=== PATIENT | male | born 2000 | race Caucasian/White ===

== ENCOUNTER 2024-07-28 08:57 | Emergency (ER) | payer MEDICAID, SELFPAY ==
--- NOTE | ~2024-07-28 | XR_ITS ---
EXAMINATION: XR ELBOW 3 VIEWS LEFT HISTORY: pain/possible dislocation COMPARISON: There are no prior studies available for comparison. FINDINGS: Three views of the left elbow are submitted. Osseous mineralization is normal. There is no fracture or dislocation. The joint spaces are preserved. The soft tissues are unremarkable. XR/XR elbow LT min 3V IMPRESSION: Unremarkable examination of the left elbow. Electronically signed by: Fabrizio Sweet MD 07/28/2024 09:33 AM EDT
[2024-07-28 09:00] VITALS: BP 125/80; PULSE 84; RESP 20; TEMP 36.2; O2SAT 97; BMI 33.4
--- NOTE | 2024-07-28 09:57 | ED_ITS ---
HPI - Extremity Problem General Chief complaint: Extremity Injury, Upper Stated complaint: L elbow injury Time Seen by Provider: 07/28/24 09:37 Source: patient Mode of arrival: ambulatory Limitations: no limitations History of Present Illness ED Provider: Konrad Pedersen PA-C HPI Narrative: 24 yo right hand dominant male presents to the ER for evaluation of left elbow pain after he heard a pop while he was working out yesterday. He states he was bench pressing when he was extending his arms he felt and heard a pop in his left elbow. When he released and bent his elbow again, he felt it pop back in. He has history of a similar presentation in the past. He has not been evaluated for this. He reports pain with full flexion today. No numbness, tingling or weakness but he feels like his hand is swollen; he had a hard time getting his ring off today. MD Complaint: joint pain Onset (ago): day(s) (1) Pain Consistency: intermittent Location: left Severity scale (1-10): 1 Quality: aching Radiation: none Relieving factors: nothing Exacerbating factors: nothing Associated symptoms: denies other symptoms Related Data Allergies Allergy/AdvReac Type Severity Reaction Status Date / Time No Known Allergies Allergy Verified 07/28/24 09:03 Review of Systems Review of Systems: Yes all other systems are reviewed and are negative [facility] Social History Social History Advance Directives: No Advance Directives Information Provided: No Do you have a plan to hurt others: No Plan Physical Exam Vital Signs: Vital Signs: Last Vital Signs Temp 97.1 F 07/28/24 09:00 Pulse 84 07/28/24 09:00 Resp 20 07/28/24 09:00 BP 125/80 07/28/24 09:00 Pulse Ox 97 07/28/24 09:00 O2 Del Method Room Air 07/28/24 09:00 BMI result Body Mass Index 33.4 Appearance: Alert. Oriented X3. No acute distress. HEENT: normal inspection CVS: Normal heart rate and rhythm. Pulses normal. Respiratory: No respiratory distress. Skin: Skin warm and dry. Normal skin color. Normal skin turgor. No rashes. Extremities: normal inspection of the left elbow and left upper extremity. nontender medial and lateral epicondyles. no palpable effusion in the elbow. pain with full passive flexion. mild weakness on extension and flexion of the forearm. no proximal UE weakness. Neuro: Oriented X 3. No motor deficit. No sensory deficit. Medical Decision Making Medical Decision Making MDM Narrative: 24-year-old right-hand dominant male presents to the ER for evaluation of left elbow pain after he thinks he dislocated it while bench pressing yesterday. He has full range of motion on exam today with no point tenderness. X-ray is negative. He has some discomfort with full flexion of the elbow. There is question of ligamentous injury/ strain /laxity. will place in sling and have him follow-up with Orthopedics. We discussed rest, ice, NSAIDs for pain and discomfort and need for orthopedic follow-up. He reports this is a recurrent problem. Stable for discharge home. Differential Diagnosis Differential Diagnoses: The differential diagnosis associated with the presentation includes bursitis, ligamentous injury, sprain, tendon rupture, fracture Independent Interpretation I performed an independent interpretation of an: Plain X-Ray Interpretation: no acute fracture of effusion seen Radiology Impression Discussion of test interpretation with radiology: I have reviewed the radiologist's reading. Independent Historian Clinical information obtained from an independent historian. History obtained from or confirmed by: Parent Prescription Management I considered prescription management with: Pain Medication Critical Care Time Critical Care Time Critical Care Time: No Discharge Plan Discharge Clinical Impression: Elbow pain Qualifiers: Laterality: left Qualified Code(s): M25.522 - Pain in left elbow Patient Disposition: Home, Self-Care Instructions: Elbow Dislocation (ED), Elbow Sprain (ED) Additional Instructions: Your x-ray today was normal. Rest your arm/elbow and keep it in the sling for the next 2 days. Then you can slowly start range of motion. Limit lifting >5-10 lbs. Use ice several times per day for the next 48 hours. Take Motrin and/or Tylenol as needed for pain. Follow up Orthopedics for further evaluation and treatment, call for an appointment. If you develop new or worsening symptoms call 911 or come back to the ER for further evaluation. Referrals: [facility] [place] [facility] [Provider Group] Print Language: Hungarian
[2024-07-28 10:37] VITALS: BP 125/80; PULSE 84; RESP 20; TEMP 36.2; O2SAT 97
== END 2024-07-28 10:37 | disposition home or self-care (01) ==
PROVIDERS: Emergency Provider Emergency Medicine
DX: M25.522 Pain in left elbow (principal)
CPT/HCPCS: 73080; 99283; 99284

== ENCOUNTER → 2024-07-28 09:05 | Outpatient (BNV) | payer OTHER, SELFPAY | PROVIDERS: Emergency Provider Emergency Medicine; Visit Provider Radiology Diagnostic Radiology | DX: M25.522 Pain in left elbow (principal) | CPT/HCPCS: 73080 ==

== ENCOUNTER 2025-01-12 10:19 | Emergency (ER) | payer OTHER, SELFPAY ==
--- NOTE | ~2025-01-12 | XR_ITS ---
EXAMINATION: XR HAND, RIGHT CLINICAL INFORMATION: pain after punching window COMPARISON: None available. TECHNIQUE: PA, lateral, and oblique views of the right hand. FINDINGS: There is a fracture through the neck of the fifth metacarpal carpal with mild volar angulation. No other abnormalities are evident. XR/XR hand RT min 3V IMPRESSION: Acute boxer's fracture. Electronically signed by: Giovanni Prajapati MD 01/12/2025 10:41 AM EDT
[2025-01-12 10:23] VITALS: BP 127/64; PULSE 73; RESP 18; TEMP 36.9; O2SAT 98; BMI 35.4
--- NOTE | 2025-01-12 10:23 | ED.GENADULT ---
HPI - General Adult General Chief complaint: Extremity Injury, Upper Stated complaint: r hand inj Time Seen by Provider: 01/12/25 11:56 Source: patient, RN notes reviewed and old records reviewed Mode of arrival: ambulatory Limitations: no limitations History of Present Illness ED Provider: [facility] narrative: Patient is a 24-year-old right hand dominant male presenting with complaint of right hand pain after punching a window last night. States window did not break. Arrives in splint. Reports fracturing the same hand a few months ago. States that the splint he is wearing on arrival was 1 that he had from his prior fracture. Denies any numbness or tingling to hand. MD complaint: Hand pain Onset (ago): day(s) Related Data Allergies Allergy/AdvReac Type Severity Reaction Status Date / Time No Known Allergies Allergy Verified 01/12/25 10:26 Review of Systems Review of Systems: As per HPI Yes all other systems are reviewed and are negative Constitutional: Constitutional: Reports as per HPI [facility] Social History Social History Advance Directives: No Advance Directives Information Provided: No Physical Exam ED Vital Signs: Vital Signs - 24 hr 01/12/25 10:23 Temperature 98.4 F Pulse Rate 73 Respiratory Rate 18 Blood Pressure 127/64 Pulse Oximetry 98 Oxygen Delivery Method Room Air BMI result Body Mass Index 35.4 Vital signs have been reviewed and appear to be correct. Blood pressure normal. Heart rate normal. Respiratory rate normal. Temperature normal. Oxygen saturation normal. Const General: cooperative, healthy appearing and no acute distress Orientation/consciousness: oriented to person, oriented to place, oriented to time and patient oriented x3 Limitations: no limitations [facility] Head: Yes normocephalic and Yes atraumatic Ears: external ears normal General nose exam: Normal external nose present Face and sinus: Yes face symmetric Mouth: oropharynx normal and moist mucous membranes Throat: Yes uvula midline Eyes Pupils: Equal, round and reactive pupils present Neck Neck: Yes normal visual inspection and Yes supple Resp Effort & Inspection: normal respiratory effort and able to speak in complete sentences Auscultation: clear to auscultation bilaterally Cardio Rate: regular rate Rhythm: regular rhythm Heart sounds: S1 normal heart sound present and S2 normal heart sound present GI Palpation (GI): Soft to palpation and nontender Auscultation: normoactive bowel sounds General: Yes no CVA tenderness Back/Spine/Pelvis Back: no CVA tenderness Skin General skin exam: elasticity normal and turgor normal Neuro General: oriented to person, oriented to place, oriented to time, patient oriented x3, moves all extremities, no focal motor deficits and CN's II-XI intact bilaterally Cranial nerves: Yes Equal, round and reactive pupils present Cognition (Neuro): normal cognition Extrem General: Yes full ROM, Yes no pedal edema and Yes no calf tenderness Right upper extremity: Extremity exam: right hand Details: normal capillary refill, neurosensory exam normal, tenderness Location: of the dorsal hand Location: over the 5th metacarpal, vascular exam Details: radial pulse present, ulnar pulse present and normal capillary refill, normal ROM of fingers and swelling Location: of the dorsal hand Location: over the 5th metacarpal; no abrasions, no lacerations and no ecchymosis Psych Mental Status: mental status grossly normal Affect: normal affect Thought process: Normal thought process present Course Course Course Narrative: This is a rapid medical exam performed by Bunny Galvin NP: Additional HPI, ROS, PE not included below will be deferred to primary provider. Patient is a 24-year-old right hand dominant male presenting with complaint of right hand pain after punching a window last night. States window did not break. Arrives in splint. Plan: X-ray Medical Decision Making Medical Decision Making [facility] Narrative: Patient is a 24-year-old right hand dominant male presenting with complaint of right hand pain after punching a window last night. On exam patient is awake, A+Ox3, VS WNL, afebrile, normal neurological exam without focal deficits, physical exam findings as above. Given reported symptoms and physical exam findings, initial differential includes but is not limited to right hand contusion, strain, sprain, fracture. X-ray right hand notable for 5th metacarpal fracture with volar angulation. My interpretation is in agreement with the radiologist's interpretation. Case discussed with gigi Jonas who recommends Orthoglass splint as opposed to ulnar gutter splint that patient arrived with. Patient splinted as per procedure note, tolerated well, no complications. Advised ice, elevation, Tylenol and ibuprofen. Follow up with Orthopedics. Return precautions discussed. Patient verbalized understanding of and agreement with plan. Differential Diagnosis Differential Diagnoses: The differential diagnosis associated with the presentation includes As per [facility] Admission/Observation Consideration of admission/observation: Escalation of care including admission/observation considered Patient would have been admitted to the hospital had their clinical presentation warranted hospital admission. Independent Interpretation I performed an independent interpretation of an: Plain X-Ray Interpretation: Right hand x-ray notable for a 5th metacarpal fracture Radiology Impression Discussion of test interpretation with radiology: I have reviewed the radiologist's reading. Radiologist Impression: EXAMINATION: XR HAND, RIGHT CLINICAL INFORMATION: pain after punching window COMPARISON: None available. TECHNIQUE: PA, lateral, and oblique views of the right hand. FINDINGS: There is a fracture through the neck of the fifth metacarpal carpal with mild volar angulation. No other abnormalities are evident. XR/XR hand RT min 3V IMPRESSION: Acute boxer's fracture. External Record Review External record reviewed: Inpatient record, Office record and Outpatient record Discharge Plan Discharge Clinical Impression: Fracture of fifth metacarpal bone of right hand Qualifiers: Encounter type: initial encounter Fracture type: closed Metacarpal location: neck Patient Disposition: Home, Self-Care Instructions: Hand Fracture (DC), Splint Care (ED), P.R.I.C.E. Treatment (ED) Additional Instructions: You have been evaluated in the emergency department today for right hand pain. Your evaluation showed a fracture of your 5th metacarpal bone. We have placed your hand in a splint today, avoid getting the splint wet. Please rest, ice, and elevate your hand to help it heal. Use use Tylenol or ibuprofen per package directions every 6 hours as needed for pain. If necessary, you can alternate these medications and take one medication every 3 hours. For instance, at noon take ibuprofen, then at 3:00 p.m. take Tylenol, then at 6:00 p.m. take ibuprofen. Please follow-up with the orthopedic surgeon within 1 week. Return to the emergency department if you experience worsening pain, numbness, tingling, change of color in your fingers, or any other concerning symptoms. [place]errals: [facility] [place] [facility] [place] Group] Clinical Impression: Fracture of fifth metacarpal bone of right hand Stand Alone Forms: Work/School Release Print Language: Tajik
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
[2025-01-12 12:45] VITALS: BP 127/64; PULSE 73; RESP 18; TEMP 36.9; O2SAT 98
== END 2025-01-12 12:46 | disposition home or self-care (01) ==
PROVIDERS: Emergency Provider Emergency Medicine
DX: S62.396A Other fracture of fifth metacarpal bone, right hand, initial encounter for closed fracture (principal); M79.641 Pain in right hand; W22.8XXA Striking against or struck by other objects, initial encounter; Y93.89 Activity, other specified; Y92.89 Other specified places as the place of occurrence of the external cause; Y99.8 Other external cause status
CPT/HCPCS: 29125; 73130; 99282; 99283; 99284

== ENCOUNTER → 2025-01-12 10:24 | Outpatient (BNV) | payer OTHER, SELFPAY | PROVIDERS: Visit Provider Radiology Diagnostic Radiology | DX: S62.336A Displaced fracture of neck of fifth metacarpal bone, right hand, initial encounter for closed fracture (principal) | CPT/HCPCS: 73130 ==

== ENCOUNTER 2025-01-19 08:20 | Outpatient (REF) | payer OTHER, SELFPAY ==
--- NOTE | ~2025-01-19 | XR_ITS ---
CLINICAL HISTORY: M79.641 - Pain in right hand --- Additional Notes or Special Instructions: Attn fifth MC 3 view right hand Comparison: CR/SR - XR HAND 3 OR MORE VIEWS RIGHT - 01/12/25 10:40 EDT Findings: Mildly displaced and angulated fracture of the 5th metacarpal neck. No significant loss of joint space or osteophytes. No erosions. No radiopaque foreign body. IMPRESSION: 5th metacarpal fracture. This document has been electronically signed by: Lorrie Gordon MD on 01/19/2025 17:01:57
--- OUTSIDE RECORDS SUMMARY | 2025-01-19 08:42 | XMS_ITS | Clinical Summary ---
Author Organization [address] Address [address] [place] [phone] Phone Care Team Providers Care Glass Cutter Helper Name Role Phone Physician, No Pcp Primary [...] [facility] at [address] [place] [address] by Jeremy Bello as of 07/16/16 As of 05/27/18 - seeing Anette Desai at [address] [phone] Sleep disturbance 05/27/2009 Attention deficit disorder of childhood 05/15/19 10 Overview (04/26/2024): Being followed by behavioral health as of 07/2016 Immunizations Name Administration Dates Next Due DTaP (Infanrix) 6wks to less than 7yo ,06/16/2002,2001,08/03,2001 [id number] (Pentacel) 2mo to less than 5yo 06/16/2002,2001,2001,05/31 [...] Site/Laterality Comments OTHER SURGICAL HISTORY 2001 PROCEDURE: NM PYLOROMYOTOMY CUTTING PYLORIC MUSC; COMMENT: DR. 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 Antelmo Ro - dx made [...] patient's age to complete this topic Insurance [facility] PLAN Care Teams Glass Cutter Helper Relationship Specialty Start Date End Date Physician, No Pcp PCP - General 09/27/24
== END 2025-01-19 08:21 | disposition home or self-care (01) ==
LOC: HO.HOSX 08:20
DX: S62.336A Displaced fracture of neck of fifth metacarpal bone, right hand, initial encounter for closed fracture (principal); W22.8XXA Striking against or struck by other objects, initial encounter
CPT/HCPCS: 26600; 73130; 99202

== ENCOUNTER 2025-01-19 12:51 | Outpatient (AMB) | payer OTHER, SELFPAY ==
[2025-01-19 13:07] VITALS: BMI 35.3
--- NOTE | 2025-01-19 13:07 | MHC.OFFVIS ---
Vital Signs 01/19/25 13:07 Height 5 ft 8 in Weight 232 lb BMI 35.3 Intake Visit Reasons: FC Fx of 5th metacarpal bone of R hand Intake Note: Johnie is a 24 year old right hand dominant male, new patient, who presents today for an ED follow up status post Right 5th Metacarpal Fracture, DOI: 01/11/25. Patient presented to [facility] [place] ED reporting he had punched a window the night before. Patient was already in a velcro wrist brace. Per ED note, patient reported he had fractured his hand a month ago. Patient complains today of pain on the ulnar aspect of the right hand. Denies numbness or tingling. He is taking Tylenol and Ibuprofen PRN with relief of pain. Denies previous surgeries to the right hand. Patient shares he was given a new velcro wrist brace at the ED however it was bothering him so he went back to the orinal brace he was using, bending it so that it looked like the new brace he was given. Allergies No Known Allergies Allergy (Verified 01/19/25 13:17) HPI HPI FC Fx of 5th metacarpal bone of R hand: Details: Johnie is a 24 year old right hand dominant male, new patient, who presents today for an ED follow up status post Right 5th Metacarpal Fracture, DOI: 01/11/25. Patient presented to [facility] [place] ED reporting he had punched a window the night before. Patient was already in a velcro wrist brace. Per ED note, patient reported he had fractured his hand a month ago. Patient complains today of pain on the ulnar aspect of the right hand. Denies numbness or tingling. He is taking Tylenol and Ibuprofen PRN with relief of pain. Denies previous surgeries to the right hand. Patient shares he was given a new velcro wrist brace at the ED however it was bothering him so he went back to the orinal brace he was using, bending it so that it looked like the new brace he was given. Review of Systems Const All systems reviewed & are unremarkable except as noted in HPI and below Physical Exam Vital Signs: BMI result Body Mass Index 35.3 Extrem Other: Patient is alert, oriented, and in no acute distress. Neuro: Normal sensation of the tips of all digits of the right hand at this time Vascular: Cap refill brisk Pain: Tenderness to palpation noted over the 5th metacarpal of the right hand Pain with range of motion of the right hand ROM: Patient is able to make a closed fist with the right hand Skin: No lacerations or abrasions. General: Edema noted over the 5th metacarpal head and neck No ecchymosis, erythema, or evidence of infection. Psych: Appears grossly normal Affect normal Attitude cooperative Office Procedures AMB Fracture Care Fracture Billing Code: Fracture Billing Code Casting/Splints 27981-Sjyvmpi Splint Application Procedure code (CPT) selection complete Results Reviewed Results Reviewed: X-rays obtained in the office today and independently reviewed by me, Pritesh Holguin PA-C, demonstrate minimally displaced fracture of the right 5th metacarpal neck. Assessment & Plan Assessment & Plan (1) Closed displaced fracture of neck of right fifth metacarpal bone: Code(s): S62.336A - Displaced fracture of neck of fifth metacarpal bone, right hand, initial encounter for closed fracture Category: Medical Plan 1. Right 5th metacarpal neck fracture Date of injury 01/12/2025 Patient is educated about this condition Patient is educated about the typical recovery course At this time, patient is informed that I feel we can treat this fracture conservatively, as fracture is very minimally displaced Patient is placed into a 2 finger ulnar gutter splint Patient is educated on proper splint care and precautions Follow-up next week for reassessment, anticipate cast placement at that time, we will need repeat x-rays, sooner with any acute concerns Orders: Orders XR hand RT min 3V Today M79.641 - Pain in right hand Coding Level of Care Code New Pt Level 3 (52341) Diagnoses Closed displaced fracture of neck of right fifth metacarpal bone S62.336A CPT Codes Fracture Care - Fracture Billing Code: Fracture Billing Code ([id number]) Splint - CPT: 52210-Llvuuhl Splint Application ([id number])
== END 2025-01-19 13:51 | disposition home or self-care (01) ==
LOC: HO.HOS 12:52
DX: S62.336A Displaced fracture of neck of fifth metacarpal bone, right hand, initial encounter for closed fracture (principal)
CPT/HCPCS: 26600; 99203

== ENCOUNTER → 2025-01-19 12:56 | Outpatient (BNV) | payer OTHER, SELFPAY | PROVIDERS: Visit Provider Radiology Diagnostic Radiology | DX: S62.336A Displaced fracture of neck of fifth metacarpal bone, right hand, initial encounter for closed fracture (principal) | CPT/HCPCS: 73130 ==

== ENCOUNTER 2025-01-26 09:30 | Outpatient (REF) | payer OTHER, SELFPAY ==
--- NOTE | ~2025-01-26 | XR_ITS ---
EXAMINATION: XR HAND, RIGHT CLINICAL INFORMATION: M79.641 - Pain in right hand COMPARISON: 01/19/2025 TECHNIQUE: PA, lateral, and oblique views of the right hand. FINDINGS: Again seen is a boxer's fracture involving the fifth metacarpal neck with minimal volar deformity. There is faint increasing periosteal new bone formation consistent with healing. There is also increasing lucencies along the dorsal end of the fracture which is a normal change during early healing. XR/XR hand RT min 3V IMPRESSION: Healing Boxer's fracture of the right hand Electronically signed by: Giovanni Prajapati MD 01/26/2025 02:36 PM EDT
--- OUTSIDE RECORDS SUMMARY | 2025-01-26 10:01 | XMS_ITS | Clinical Summary ---
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 JAS [...] infectious organisms Congenital hypertrophic pylo obdulio stenosis (CMS/[facility] V28) 2001 DX:Congenital hypertrophic p yloric stenosis Aggressive behavior 01/17/2014 DX:Aggressiv e behavior; COMMENT: Evaluation done 02/12/14 at [facility] by Dr. Antelmo Ro - [...] Depression Screening 05/10/2024 COVID-19 Vaccine (2 - 2024- season) 2025 02/07/2022 Influenza Vaccine (#1) 2025 9, 03/02/2018, 03/19/2017, Additional history exists RSV Immunization Adult Patients (1 - 1-dose 75+ series) 2076 Hepatitis B Vaccines Completed 01/01/2002, 2001, 2001 [...] patient's age to complete this topic Insurance [facility] PLAN Care Teams Building Associate Relationship Specialty Start Date End Date Physician, No Pcp PCP - General 09/27/24
== END 2025-01-26 09:31 | disposition home or self-care (01) ==
LOC: HO.HOSX 09:30
DX: S62.336D Displaced fracture of neck of fifth metacarpal bone, right hand, subsequent encounter for fracture with routine healing (principal); W22.8XXD Striking against or struck by other objects, subsequent encounter
CPT/HCPCS: 29085; 73130; 99212

== ENCOUNTER 2025-01-26 13:01 | Outpatient (AMB) | payer OTHER, SELFPAY ==
--- NOTE | 2025-01-26 13:19 | MHC.OFFVIS ---
Vital Signs 01/26/25 13:22 Height 5 ft 8 in Weight 213 lb BMI 32.4 Handedness Right Intake Visit Reasons: OV-5th metacarpal bone of R hand-w/xrays? Intake Note: Johnie is a 24 year old right hand dominant man who presents today for a follow up visit for his closed displaced fracture of neck of right fifth metacarpal bone, DOI: 01/11/25 s/p punching a window. At his last visit he was placed in a into a 2 finger ulnar gutter splint. His splint was removed today in office for updated x-rays. Patient expresses pain that comes and goes localized on the right hand 5th MCP and radiates up the finger. Denies numbness and tingling. With the splint removed he does express some stiffness. Patient is requesting a school note today. Allergies No Known Allergies Allergy (Verified 01/26/25 13:22) Do you need a note to return to daycare/school/sports/work: Yes Return to daycare/school/sports/work/other note: school HPI HPI OV-5th metacarpal bone of R hand-w/xrays?: Details: Johnie is a 24 year old right hand dominant man who presents today for a follow up visit for his closed displaced fracture of neck of right fifth metacarpal bone, DOI: 01/11/25 s/p punching a window. At his last visit he was placed in a into a 2 finger ulnar gutter splint. His splint was removed today in office for updated x-rays. Patient expresses pain that comes and goes localized on the right hand 5th MCP and radiates up the finger. Denies numbness and tingling. With the splint removed he does express some stiffness. Patient is requesting a school note today. Review of Systems Const All systems reviewed & are unremarkable except as noted in HPI and below Physical Exam Vital Signs: BMI result Body Mass Index 32.4 Extrem Other: Patient is alert, oriented, and in no acute distress. Neuro: Normal sensation of the tips of all digits of the right hand at this time Vascular: Cap refill brisk Pain: Tenderness to palpation noted over the 5th metacarpal of the right hand Pain with range of motion of the right hand ROM: Patient is able to make a closed fist with the right hand Skin: No lacerations or abrasions. General: Edema noted over the 5th metacarpal head and neck No ecchymosis, erythema, or evidence of infection. Psych: Appears grossly normal Affect normal Attitude cooperative Office Procedures Casting/Splints 29029-Pqaa/Wrist Cast Application Procedure code (CPT) selection complete Results Reviewed Results Reviewed: X-rays obtained in the office today and independently reviewed by me, Pritesh Holguin PA-C, demonstrate minimally displaced fracture of the right 5th metacarpal nec with early evidence of bony healing. Assessment & Plan Assessment & Plan (1) Closed displaced fracture of neck of right fifth metacarpal bone: Code(s): S62.336A - Displaced fracture of neck of fifth metacarpal bone, right hand, initial encounter for closed fracture Category: Medical Plan 1. Right 5th metacarpal neck fracture Date of injury 01/12/2025 Patient is educated about this condition Patient is educated about the typical recovery course At this time, patient is informed that I feel we can treat this fracture conservatively, as fracture is very minimally displaced Patient is placed into a 2 finger ulnar gutter cast Patient is educated on proper cast care and precautions Follow-up next week for reassessment, anticipate cast removal at that time, we will need repeat x-rays, sooner with any acute concerns Orders: Orders XR hand RT min 3V 01/26/25 M79.641 - Pain in right hand Coding Level of Care Code Global (48027) Diagnoses Closed displaced fracture of neck of right fifth metacarpal bone S62.336A CPT Codes Casting - CPT: 79973-Dutf/Wrist Cast Application ([id number])
[2025-01-26 13:22] VITALS: BMI 32.4
== END 2025-01-26 14:09 | disposition home or self-care (01) ==
LOC: HO.HOS 13:01
DX: S62.336A Displaced fracture of neck of fifth metacarpal bone, right hand, initial encounter for closed fracture (principal)
CPT/HCPCS: 29085; 99024

== ENCOUNTER → 2025-01-26 13:02 | Outpatient (BNV) | payer OTHER, SELFPAY | PROVIDERS: Visit Provider Radiology Diagnostic Radiology | DX: S62.306D Unspecified fracture of fifth metacarpal bone, right hand, subsequent encounter for fracture with routine healing (principal) | CPT/HCPCS: 73130 ==

== ENCOUNTER 2025-02-09 08:28 | Outpatient (AMB) | payer OTHER, SELFPAY ==
--- OUTSIDE RECORDS SUMMARY | 2025-02-09 08:50 | XMS_ITS | Clinical Summary ---
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 Antelmo Ro - dx made [...] patient's age to complete this topic Insurance [facility] [id number] Care Teams Executive Coordinator Relationship Specialty Start Date End Date Physician, No Pcp PCP - General 09/27/24
[2025-02-09 09:02] VITALS: BMI 32.4
--- NOTE | 2025-02-09 09:02 | A.OFFVIS_ITS ---
Vital Signs 02/09/25 09:02 Height 5 ft 8 in Weight 213 lb BMI 32.4 Intake Visit Reasons: OV:Right 5th Metacarpal Bone Fx, DOI: 01/11/25 Intake Note: Johnie is a 24 year old right hand dominant male who presents today for follow up status post Right 5th Metacarpal Bone Fracture, DOI: 01/11/25. Patient was placed into a 2 finger ulnar gutter cast at his last visit. Cast removed in office and xrays updated in office. States he was having pain on his 4th MCP on his dorsal aspect of hand. Reports it feels a little better tnow that his cast has been removed. Allergies No Known Allergies Allergy (Verified 02/09/25 09:11) HPI HPI OV:Right 5th Metacarpal Bone Fx, DOI: 01/11/25: Details: Johnie is a 24 year old right hand dominant male who presents today for follow up status post Right 5th Metacarpal Bone Fracture, DOI: 01/11/25. Patient was placed into a 2 finger ulnar gutter cast at his last visit. Cast removed in office and xrays updated in office. States he was having pain on his 4th MCP on his dorsal aspect of hand. Reports it feels a little better tnow that his cast has been removed. [facility] Social History (Updated 02/09/25 @ 09:05 by AYSE Granger) Patient Tobacco Use Status: Former Tobacco user Current occupational status: student Current occupation: rt hand/ Review of Systems Const All systems reviewed & are unremarkable except as noted in HPI and below Physical Exam Vital Signs: BMI result Body Mass Index 32.4 Extrem Other: Patient is alert, oriented, and in no acute distress. Neuro: Normal sensation of the tips of all digits of the right hand at this time Vascular: Cap refill brisk Pain: No Tenderness to palpation noted over the 5th metacarpal of the right hand Pain with range of motion of the right hand ROM: Patient is able to make a closed fist with the right hand Skin: No lacerations or abrasions. General: No further Edema noted over the 5th metacarpal head and neck No ecchymosis, erythema, or evidence of infection. Psych: Appears grossly normal Affect normal Attitude cooperative Assessment & Plan Assessment & Plan (1) Closed displaced fracture of neck of right fifth metacarpal bone: Code(s): S62.336A - Displaced fracture of neck of fifth metacarpal bone, right hand, initial encounter for closed fracture Category: Medical Plan 1. Right 5th metacarpal neck fracture Date of injury 01/12/2025 Patient is educated about this condition Patient is educated about the typical recovery course At this time, patient is informed that I feel we can treat this fracture conserv atively, as fracture is very minimally displaced Patient is placed into a velcro wrist splint to wear with daytime activities, and aubrey tape to tape the 4th and 5th digits together whenever awake and not bathing Should work on ROM of the digits of the R hand 2 lb weight limit until f/u Follow-up in 4 weeks, we will need repeat x-rays, sooner with any acute concerns Orders: Orders XR hand RT min 3V Today M79.641 - Pain in right hand Coding Level of Care Code Global (48144) Diagnoses Closed displaced fracture of neck of right fifth metacarpal bone S62.336A
== END 2025-02-09 09:29 | disposition home or self-care (01) ==
LOC: HO.HOS 08:29
DX: S62.336A Displaced fracture of neck of fifth metacarpal bone, right hand, initial encounter for closed fracture (principal)
CPT/HCPCS: 99024

== ENCOUNTER 2025-02-09 08:28 | Outpatient (REF) | payer OTHER, SELFPAY ==
--- NOTE | ~2025-02-09 | XR_ITS ---
EXAMINATION: XR HAND 3 OR MORE VIEWS RIGHT HISTORY: M79.641 - Pain in right hand COMPARISON: Comparison is made with the prior examination dated 01/26/2025. FINDINGS: Three views of the right hand are submitted. Osseous mineralization is normal. Again seen is a fracture of the 5th metacarpal neck. There is greater bridging callus formation noted on the current study, consistent with further healing. The joint spaces are preserved. The soft tissues are unremarkable. XR/XR hand RT min 3V IMPRESSION: Continued healing of the previously seen fracture of the 5th metacarpal neck. Electronically signed by: Fabrizio Sweet MD 02/09/2025 08:57 AM EDT
== END 2025-02-09 08:29 | disposition home or self-care (01) ==
LOC: HO.HOSX 08:28
DX: S62.336D Displaced fracture of neck of fifth metacarpal bone, right hand, subsequent encounter for fracture with routine healing (principal); X58.XXXD Exposure to other specified factors, subsequent encounter
CPT/HCPCS: 73130; 99212

== ENCOUNTER → 2025-02-09 08:44 | Outpatient (BNV) | payer OTHER, SELFPAY | PROVIDERS: Visit Provider Radiology Diagnostic Radiology | DX: M79.641 Pain in right hand (principal) | CPT/HCPCS: 73130 ==

== ENCOUNTER 2025-03-12 08:02 | Outpatient (REF) | payer OTHER, SELFPAY ==
--- NOTE | ~2025-03-12 | XR_ITS ---
EXAMINATION: XR HAND 3 OR MORE VIEWS RIGHT HISTORY: M79.641 - Pain in right hand COMPARISON: Comparison is made with the prior examination dated 02/09/2025. FINDINGS: Three views of the right hand are submitted. Osseous mineralization is normal. There is been further healing of the previously seen fracture of the 5th metacarpal neck with greater callus formation. The fracture line remains visible but is less well seen than on the prior study. The joint spaces are preserved. The soft tissues are unremarkable. XR/XR hand RT min 3V IMPRESSION: Continued healing of previously seen fracture of the 5th metacarpal neck. Electronically signed by: Fabrizio Sweet MD 03/12/2025 09:40 AM EST
== END 2025-03-12 08:03 | disposition home or self-care (01) ==
LOC: HO.HOSX 08:02
DX: S62.336D Displaced fracture of neck of fifth metacarpal bone, right hand, subsequent encounter for fracture with routine healing (principal); X58.XXXD Exposure to other specified factors, subsequent encounter
CPT/HCPCS: 73130; 99212

== ENCOUNTER 2025-03-12 09:23 | Outpatient (AMB) | payer OTHER, SELFPAY ==
--- NOTE | 2025-03-12 09:33 | A.OFFVIS_ITS ---
Vital Signs 03/12/25 09:34 Height 5 ft 8 in Weight 213 lb BMI 32.4 Intake Visit Reasons: OV-RT 5th Metacarpal Bone Fx, DOI: 01/11/25-w/xray Intake Note: Johnie is a 24 year old right hand dominant male who presents today for status post Right 5th Metacarpal Bone Fracture, DOI: 01/11/25. At his last visit, 02/09/25, he was transitioned to a Velcro wrist brace to wear with daytime activities and aubrey tape to tape the 4th and 5th digits together whenever awake. Patient was advised to work on ROM and to keep a 2lb weight limit until follow up. Today patient states he has no pain and is doing really well with his ROM. States no concerns for today visit. Allergies No Known Allergies Allergy (Verified 03/12/25 09:37) HPI HPI OV-RT 5th Metacarpal Bone Fx, DOI: 01/11/25-w/xray: Details: Johnie is a 24 year old right hand dominant male who presents today for status post Right 5th Metacarpal Bone Fracture, DOI: 01/11/25. At his last visit, 02/09/25, he was transitioned to a Velcro wrist brace to wear with daytime activities and aubrey tape to tape the 4th and 5th digits together whenever awake. Patient was advised to work on ROM and to keep a 2lb weight limit until follow up. Today patient states he has no pain and is doing really well with his ROM. States no concerns for today visit. No ongoing issues of pain. Denies numbness or tingling in the right upper extremity. No other acute complaints or concerns at this time. [facility] Social History Patient Tobacco Use Status: Former Tobacco user Current occupational status: student Current occupation: rt hand/ Review of Systems Const All systems reviewed & are unremarkable except as noted in HPI and below Physical Exam Vital Signs: BMI result Body Mass Index 32.4 Extrem Other: Patient is alert, oriented, and in no acute distress. Neuro: Normal sensation of the tips of all digits of the right hand at this time Vascular: Cap refill brisk Pain: No Tenderness to palpation noted over the 5th metacarpal of the right hand Pain with range of motion of the right hand ROM: Patient is able to make a closed fist with the right hand without any difficulty Skin: No lacerations or abrasions. General: No further Edema noted over the 5th metacarpal head and neck No ecchymosis, erythema, or evidence of infection. Psych: Appears grossly normal Affect normal Attitude cooperative Results Reviewed Results Reviewed: X-rays obtained in the office today and independently reviewed by me, Pritesh Holguin PA-C, demonstrate minimally displaced fracture of the right 5th metacarpal nec with interval bony healing. Assessment & Plan Assessment & Plan (1) Closed displaced fracture of neck of right fifth metacarpal bone: Code(s): S62.336A - Displaced fracture of neck of fifth metacarpal bone, right hand, initial encounter for closed fracture Category: Medical Plan 1. Right 5th metacarpal neck fracture Date of injury 01/12/2025 Patient is educated about this condition Patient is educated about the typical recovery course Patient should continue with aubrey taping and Velcro wrist splint and high-risk daytime activities May remove to work on range of motion of the right hand and wrist Patient may begin a gradual return back to normal activity at this time, with a 5 lb weight limit for 2 weeks, 10 lb weight limit for the 2 weeks following, and then a return to full normal lifting Patient understands this in his amenable to this plan Follow-up as needed with any acute concerns Orders: Orders XR hand RT min 3V 03/12/25 M79.641 - Pain in right hand Coding Level of Care Code Global (25476) Diagnoses Closed displaced fracture of neck of right fifth metacarpal bone S62.336A
[2025-03-12 09:34] VITALS: BMI 32.4
--- OUTSIDE RECORDS SUMMARY | 2025-03-12 10:33 | XMS_ITS | Clinical Summary ---
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 JAS [...] Congenital hypertrophic pylo obdulio stenosis (CMS/[facility] V28) 2001 DX:Congenital hypertrophic p yloric stenosis Aggressive behavior 01/17/2014 DX:Aggressiv e behavior; COMMENT: Evaluation done 02/12/14 at [facility] by Dr. Antelmo Ro - dx [...] patient's age to complete this topic Insurance [facility] PL[facility] Care Teams Home Health Cna Relationship Specialty Start Date End Date Physician, No Pcp PCP - General 09/27/24
== END 2025-03-12 09:52 | disposition home or self-care (01) ==
LOC: HO.HOS 09:24
DX: S62.336A Displaced fracture of neck of fifth metacarpal bone, right hand, initial encounter for closed fracture (principal)
CPT/HCPCS: 99024

== ENCOUNTER → 2025-03-12 09:24 | Outpatient (BNV) | payer OTHER, SELFPAY | PROVIDERS: Visit Provider Radiology Diagnostic Radiology | DX: M79.641 Pain in right hand (principal) | CPT/HCPCS: 73130 ==